=== PATIENT | male | born 1945 | race Caucasian/White ===

== ENCOUNTER 2016-08-11 09:10 | Outpatient (CLI) | payer MEDICARE, OTHER ==
[~2016-08-11] VITALS: Ht 172.7 cm; Wt 118.1 kg
--- OUTSIDE RECORDS SUMMARY | 2016-08-11 09:15 | XMS REPORT ---
Author Author Eddie Nolasco [facility] Address [address] [place] [id number] Care Team Providers Care Dairy Products Maker Name Role Phone Eddie Nolasco PCP Unavailable Allergies and Adverse Reactions Name Reaction Notes NO KNOWN DRUG ALLERGIES Plan of Treatment Planned Activity Comments Planned Date Planned Time Plan/Goal ELECTROCARDIOGRAM COMPLETE 05/14/2015 12:00 AM TTE W/DOPPLER COMPLETE 05/14/2015 12:00 AM Medications Active Name Start Date Estimated Completion Date SIG Comments lisinopril 10 mg oral tablet take 0.5 tablet by oral route daily omeprazole 20 mg oral capsule,delayed release(DR/EC) take 1 capsule (20 mg) by oral route once daily before a meal Medrol (Gibran) 4 mg oral tablets,dose pack 08/24/2014 take as directed Name Start Date Expiration Date SIG Comments Naprosyn 500 mg oral tablet 10/22/2009 04/20/2010 take 1 tablet (500 mg) by oral route every 12 hours with food for 30 days Lortab 10-500 mg oral tablet 11/11/2009 11/21/2009 take 1 tablet by oral route every 4-6 hours as needed for pain for 10 days prednisone 20 mg oral tablet 11/11/2009 12/04/2009 3 tabs q d x 3 d, then 2 q d x 5 d, then 1 1/2 q d x 5 d, 1 q d x 5 d, 1/2 q d x 5 d Biaxin 500 mg oral tablet 03/04/2014 03/18/2014 take 1 tablet (500 mg) by oral route 2 times per day for 14 days Flagyl 500 mg oral tablet 03/04/2014 03/18/2014 take 1 tablet (500 mg) by oral route 3 times per day for 14 days Levaquin 500 mg oral tablet 08/24/2014 08/31/2014 take 1 tablet (500 mg) by oral route once daily for 7 days Singulair 10 mg oral tablet 08/24/2014 09/23/2014 take 1 tablet (10 mg) by oral route once daily in the evening for 30 days Discontinued Name Start Date Discontinued Date SIG Comments atorvastatin 20 mg oral tablet 08/24/2014 take 0.5 tablet by oral route daily Problem List Description Status Onset Anemia Active Vital Signs Date Time BP-Sys(mm[Hg] BP-Elicia(mm[Hg]) HR(bpm) RR(rpm) Temp WT HT HC BMI BSA BMI Percentile O2 Sat(%) 08/24/2014 1:19:00 PM 132 mmHg 76 mmHg 98 bpm 18 rpm 98.6 F 252.5 lbs 68 in 38.39 kg/m2 2.34 m2 98 % 03/12/2014 3:05:00 PM 136 mmHg 84 mmHg 88 bpm 20 rpm 97.9 F 252 lbs 68 in 38.3161 kg/m 2.3418 m 96 % 02/19/2014 11:19:00 AM 170 mmHg 90 mmHg 90 bpm 20 rpm 97.4 F 252 lbs 68 in 38.32 kg/m2 2.34 m2 97 % 11/11/2009 9:25:00 AM 140 mmHg 90 mmHg 64 bpm 16 rpm 97.9 F 251.187 lbs 10/22/2009 3:44:00 PM 160 mmHg 88 mmHg 88 bpm 20 rpm 248 lbs Social History Name Description Comments Tobacco Former smoker retired History of Procedures Date Ordered Description Order Status 11/11/2009 12:00 AM X-RAY EXAM KNEE 4 OR MORE Reviewed 11/11/2009 12:00 AM X-RAY EXAM KNEE 4 OR MORE Reviewed Results Summary Data and Description Results 06/07/2007 12:00 AM Cholest Cry Stone Ql IR 162.0 %LDLc SerPl-mCnc 95.0 mg/ dLHDLc SerPl-mCnc 44.0 mg/dLTrigl SerPl-mCnc 117.0 mg/dLHgb A1c Fr Bld 5.40 % PSA SerPl-mCnc 0.760 ng/mL 12/09/2007 12:00 AM Glucose SerPl-mCnc 109.0 mg/dL History Of Immunizations Not available. History of Past Illness Name Date of Onset Comments Anemia Hyperlipidemia Knee pain Tendinitis Oct 22 2009 3:46PM Osteoarthritis, Knee Oct 22 2009 3:46PM Pain in joint; lower leg/knee Nov 11 2009 10:21AM Obesity Nov 11 2009 9:27AM Sprain/Strain Nov 11 2009 9:27AM Osteoarthritis, Knee Nov 11 2009 9:27AM Blood Pressure Reading Elevated Without Diagnosis Of Hypertension Nov 11 2009 9:27AM Hypertension Helicobacter Pylori (H. Pylori) Infection Colon Cancer Screening Feb 19 2014 11:25AM Rectal bleeding Feb 19 2014 11:25AM Helicobacter Pylori (H. Pylori) Infection Mar 12 2014 3:08PM Acute gastritis Mar 12 2014 3:08PM Follow-up examination after endoscopy Mar 12 2014 3:08PM Bronchitis Aug 24 2014 1:21PM Syncope May 14 2015 4:15PM SOB (shortness of breath) May 14 2015 4:15PM Payers Insurance Name Company Name Plan Name Plan Number Policy Number Policy Group Number Start Date Medicare Part B Medicare [facility] [id number] N/A Aetna Medicare Supplement Aetna Medicare Supplement [id number] N/A [facility] [id number] Saturday, 2008 [employer] Insurance [employer] Insurance [id number] N/A History of Encounters Visit Date Visit Type Provider 08/24/2014 Office visit Eddie Nolasco PA-C 03/12/2014 Office visit Roman Hampton MD 03/01/2014 [facility] Roman Hampton MD 02/19/2014 Office visit Roman Hampton MD 04/06/2010 Laboratory Santosh Burciaga MD 01/13/2010 Laboratory Joaquin Gibbs MD 11/11/2009 Office visit Tyler Perry DO 10/22/2009 Office visit Tyler Perry DO 05/29/2009 Office visit Tyler Perry DO
[2016-08-11 09:18] VITALS: BP 159/83
[2016-08-11] MEDS ORDERED: LISI-552 PO (09:31)
[2016-08-11] MEDS ORDERED: ASPI-808 PO (09:31)
[2016-08-11] MEDS ORDERED: ATOR10TA66 PO (09:31)
[2016-08-11] MEDS ORDERED: FISH1CAP15 PO (09:31)
[2016-08-11 09:55] LABS: BASOPHILS % (AUTO) 1 % (0-10); EOSINOPHILS # (AUTO) 0.1 10^3/uL (0.0-0.3); EOSINOPHILS % (AUTO) 2 % (0-10); LYMPHOCYTES % (AUTO) 31 % (12-44); MEAN CORPUSCULAR HEMOGLOBIN 29 PG (25-34); MEAN CORPUSCULAR HGB CONC 34 G/DL (32-36); MEAN CORPUSCULAR VOLUME 85 FL (80-99); MONOCYTES # (AUTO) 0.4 X 10^3 (0.0-1.0); MONOCYTES % (AUTO) 6 % (0-12); NEUTROPHILS # (AUTO) 3.8 X 10^3 (1.8-7.8); NEUTROPHILS % (AUTO) 61 % (42-75); PLATELET COUNT 326 10^3/uL (130-400); RED BLOOD COUNT 4.76 10^6/uL (4.35-5.85); RED CELL DISTRIBUTION WIDTH 13.8 % (10.0-14.5); WHITE BLOOD COUNT 6.4 10^3/uL (4.3-11.0)
== END 2016-08-11 09:40 | disposition home or self-care (01) ==
LOC: PREOP 09:10
PROVIDERS: ATTEND Surgery Pediatric Surgery
DX: Z01.812 Encounter for preprocedural laboratory examination (principal); Z11.2 Encounter for screening for other bacterial diseases; E66.01 Morbid (severe) obesity due to excess calories; Z68.39 Body mass index [BMI] 39.0-39.9, adult
CPT/HCPCS: 36415; 85025; 87081

== ENCOUNTER 2016-08-16 06:56 | Inpatient (IN) | payer MEDICARE, OTHER ==
[~2016-08-16] VITALS: Ht 172.7 cm; Wt 118.1 kg
[~2016-08-16 06:56] MED LIST: ASPI-808 PO; ATOR10TA66 PO; FISH1CAP15 PO; LISI-552 PO
[2016-08-16] MEDS ORDERED: ceFAZolin 1,000 MG (ANCEF) VIAL ONE (07:00)
[2016-08-16] MEDS ORDERED: NORMAL SALINE (BAXTER MINI) 50 ML IV ONE (07:00)
[2016-08-16] MEDS ORDERED: proPOfol 200 MG/20 ML (DIPRIVAN) VIAL IV ONE (07:09)
[2016-08-16] MEDS ORDERED: ROCURONIUM 50 MG/5 ML (ZEMURON) VIAL IV ONE ×2 (07:09→10:04)
[2016-08-16] MEDS ORDERED: DEXAMETHASONE PF 10 MG/ML (DECADRON) VIAL ONE (07:09)
[2016-08-16] MEDS ORDERED: SEVOFLURANE (ULTANE) 15 ML INHAL SOLN ONE ×4 (07:09→10:03)
[2016-08-16] MEDS ORDERED: LACTATED RINGERS 1,000 ML IV ONE ×2 (07:09→08:25)
[2016-08-16] MEDS ORDERED: MIDAZOLAM 2 MG/2 ML (VERSED) VIAL ONE (07:09)
[2016-08-16] MEDS ORDERED: fentaNYL INJECTION 250 MCG/5 ML AMP ONE (07:09)
[2016-08-16] MEDS ORDERED: LIDOCAINE PF 2% 10 ML (XYLOCAINE) AMP ONE (07:09)
[2016-08-16] MEDS ORDERED: ONDANSETRON 4 MG/2 ML (SDV) Z0FRAN ONE ×2 (07:09→07:15)
[2016-08-16] MEDS ORDERED: FAMOTIDINE 20MG/2ML IV (PEPCID) ONE (07:15)
[2016-08-16] MEDS: LACTATED RINGERS 1,000 ML IV PRN ×2 (07:15→08:30)
[2016-08-16] MEDS ORDERED: BUP/EPI 0.5% 1:200,000 (SENSORCAINE) 30 ML VIAL ONE (07:17)
[2016-08-16] MEDS ORDERED: ONDANSETRON 4 MG/2 ML (SDV) Z0FRAN IV ONE (07:30)
[2016-08-16] MEDS ORDERED: FAMOTIDINE 20MG/2ML IV (PEPCID) IV ONE (07:30)
[2016-08-16] MEDS ORDERED: CATHETER FLUSH 10 ML SYR IV PRN (07:30)
[2016-08-16] MEDS ORDERED: ceFAZolin 1 GM/NS 50 ML IVPB IV ONE ×2 (07:30)
[2016-08-16 07:50] VITALS: BP 157/83
--- NOTE | 2016-08-16 07:56 | Progress Note-Pre Operative ---
Pre-Operative Progress Note H&P Reviewed The H&P was reviewed, patient examined and no changes noted. Date H&P Reviewed: Aug 16, 2016 Time H&P Reviewed: 07:55 Pre-Operative Diagnosis: Morbid obesity, HTN MELQUIADES ALEGRIA APRN Aug 16, 2016 7:56 am
[2016-08-16] MEDS ORDERED: ESMOLOL 100 MG/10 ML (BREVIBLOC) VIAL ONE (09:13)
[2016-08-16] MEDS ORDERED: NEOSTIGMINE (BLOXIVERZ ) 1 MG/1ML 10 ML VIAL ONE (09:54)
[2016-08-16] MEDS ORDERED: GLYCOPYRROLATE 0.2 MG/ML (ROBINUL) 2 ML VIAL ONE (09:54)
[2016-08-16] MEDS ORDERED: fentaNYL INJECTION 100 MCG/2 ML AMP ONE (09:58)
--- NOTE | 2016-08-16 10:12 | Progress Note-Post Operative ---
Post-Operative Progess Note Preparator Hoang Hurt WARP CLAMPER Pre-Operative Diagnosis Morbid obesity, HTN Post-Operative Diagnosis same Post-Op Procedure Note Date of Procedure: Aug 16, 2016 Name of Procedure: laparoscopic gastric sleeve resection Anesthesia Type GET Estimated blood loss (mL): minimal Specimen(s) collected stomach TRISTON DALE MD Aug 16, 2016 10:12 am
[2016-08-16] MEDS ORDERED: fentaNYL INJECTION 5,000 MCG in NS (IVPB) 0 ML IV SCH (10:15)
[2016-08-16] MEDS ORDERED: oxyCODONE 20 MG/1 ML ORAL CONC (RoxiCODONE) CHARGE PER 1 ML PO PRN (10:15)
[2016-08-16] MEDS ORDERED: diphenhydrAMINE 50 MG/ML INJ (BENADRYL) IVP PRN (10:15)
[2016-08-16] MEDS ORDERED: HYDROmorphone (DILAUDID) 2 MG/ML VIAL ONE (10:19)
[2016-08-16] MEDS ORDERED: morphine INJ 10 MG/ML 1ML (SYR OR VIAL) ONE (10:19)
[2016-08-16] MEDS: morphine INJ 10 MG/ML 1ML (SYR OR VIAL) IVP PRN ×2 (10:28→10:35)
[2016-08-16] MEDS ORDERED: ONDN4T PO (10:29)
[2016-08-16] MEDS ORDERED: OXYC-473 PO (10:29)
[2016-08-16] MEDS ORDERED: PANT40TA2 PO (10:29)
[2016-08-16] MEDS ORDERED: HYDROmorphone (DILAUDID) 2 MG/ML VIAL IVP PRN (10:30)
[2016-08-16] MEDS ORDERED: ONDANSETRON 4 MG/2 ML (SDV) Z0FRAN IVP PRN (10:30)
[2016-08-16] MEDS ORDERED: MEPERIDINE (DEMEROL) INJ 50 MG/ML IVP PRN (10:30)
--- NOTE | 2016-08-16 10:34 | Discharge Inst-Surgical ---
D/C Lap Instructions-SUYAPA New, Converted, or Re-Newed RX: RX on Chart Follow Up Appt in 2 weeks Activity as tolerated No driving for 24 hours No driving while on pain medications Incentive Spirometry use every 2 hours while awake Phase 1 clear liquid diet. Symptoms to Report: Fever over 101 degree F, Nausea/Vomiting Infection Signs and Symptoms to report: Increased redness, Foul odor of wound, Increased drainage Bathing instructions: May shower Operative Area Clean/Dry; Keep incision clean/dry If any problems/questions: Contact your physician or go to Emergency Room TRISTON DALE MD Aug 16, 2016 10:33 am
[2016-08-16] MEDS: 1/2 NS W/KCL 20 MEQ/L 1,000 ML IV SCH ×3 (11:43→22:10)
[2016-08-16 11:45] VITALS: BP 153/83
[2016-08-16] MEDS: metroNIDAZOLE 500MG/100ML IVPB 100 ML IV SCH ×2 (11:49→18:18)
[2016-08-16] MEDS: fentaNYL PCA 300 MCG/30 ML VIAL IV PRN (11:58)
--- NOTE | 2016-08-16 13:20 | OPERATIVE REPORT ---
PROCEDURE PHYSICIAN: TRISTON NAVA DATE OF PROCEDURE: 08/16/2016 ATTENDING PHYSICIAN: Dr. Perry PREOPERATIVE DIAGNOSIS: 1. Morbid obesity. 2. Hypertension. 3. Degenerative joint disease. POSTOPERATIVE DIAGNOSIS: 1. Morbid obesity. 2. Hypertension. 3. Degenerative joint disease. PROCEDURE: Laparoscopic gastric sleeve resection. SURGEON: Dr. Nava. HOSPICE SPIRITUAL CARE COORDINATOR: Hoang Hurt APRN. ANESTHESIA: General endotracheal. ESTIMATED BLOOD LOSS: Minimal. FINDINGS: Mild hepatomegaly. DISPOSITION: The patient tolerated the procedure well. Mr. Marques Ram is a 71-year-old male who is in our surgical weight loss program for the laparoscopic gastric sleeve resection and meets the medical criteria for bariatric surgery. He reports gaining the majority of his weight 25 years ago after he quit smoking. He has tried a number of exercise and diet attempts with no success. He has tried diet programs including Atkins, and high protein, low carb diets, with no success. He has tried exercise regimens including walking, stationary bike and treadmill, again with no success. His medical comorbidities related to obesity include hypertension, degenerative joint disease. PROCEDURE: The patient was brought to the operating room and laid supine on the table. After adequate IV pain and sedative medications and general endotracheal intubation the abdomen was prepped and draped in the standard surgical fashion. 0.5% Marcaine with epinephrine was then used to anesthetize the overlying skin in the left upper abdominal quadrant. A small transverse incision made using a 15 blade. The Veress needle was removed and a 5 mm Xcel trocar placed followed by a 5 mm, 45 degrees angle laparoscope, visualizing the peritoneal cavity. A four-quadrant abdominal exploration was performed. There was mild hepatomegaly. The gallbladder was visualized and appeared normal. No hiatal hernia was identified. Under direct visualization, we then to place a mid abdominal, left of midline 10 mm port after the skin and peritoneum were anesthetized using 0.5% Marcaine with epinephrine. In a similar manner, a mid abdominal, right of midline 15 mm port was placed, followed by a 5 mm abdominal quadrant port. An area in the epigastric region was then anesthetized using 0.5% Marcaine with epinephrine and a small transverse skin incision made using an 11 blade. A tract was then created through the abdominal wall layers using the trocar to a 5 mm port. Through this opening a medium size Wendy liver retractor was placed and the left lobe of the liver retracted anteriorly and superiorly. The patient was then placed in deep reverse Trendelenburg position. The distance was measured from the pylorus along the greater curvature, approximately 6 cm and marked with a marking pen. The gastrocolic ligament near the stomach was then opened using Sonicision. The lesser sac was entered. We then proceeded with inferior dissection until we were approximately 2 cm below our marking. We then proceeded proximately taking down the short gastric vessels, using the Sonicision. The entire angle of His was then dissected out, as well as the posterior stomach with visualization of good hemostasis. We then proceeded with our gastric sleeve resection using a OCHOA 45 mm polyglycolic acid black load stapler at approximately 2 cm below our marking. Before this, the lighted GastroSail was placed under direct visualization and used this as a bougie. We then proceeded to follow along the lighted bougie using two 60 mm black load followed by 60 mm purple load with visualization of good hemostasis. The staple line edges were then clipped with 5 mm clips. The pylorus was then occluded and approximally 75 mL of air were infused through the GastriSail with no leak identified. The saline that was irrigated was then suctioned out. Tisseel fibrin glue was then placed on the staple line and the omenta placed onto the staple line. The stomach remnant was removed through the 15 mm port site. The liver retractor was then removed. The fascia and peritoneum to the 10 and 15 mm port sites were then closed under direct visualization using a Bryan-Isidro device and 0 Vicryl suture. The abdomen was desufflated. The remaining ports removed and all skin incisions were closed using 4-0 Monocryl running subcuticular sutures. Wounds were then cleaned and covered Dermabond. The patient tolerated procedure well. We will admit him to the general surgical floor. We will start IV and oral pain medication. We will also proceed with DVT prophylaxis with early ambulation, calf SCDs, as well as Lovenox injections. Tomorrow we will start a phase I clear liquid diet. Once he is tolerating clears, has good pain control with oral pain medication and is ambulating well, we will discharge him home. Job ID: [id number] Dictated Date: 08/16/2016 10:50:31 Diplomatic Officer Date: 08/16/2016 13:03:22 / tri PRESCOTT
[2016-08-16] MEDS: meTOprolol 5 MG/5 ML (LOPRESSOR) VIAL IVP SCH ×3 (13:25→21:14)
[2016-08-16] MEDS: ONDANSETRON 4 MG/2 ML (SDV) Z0FRAN IVP SCH ×2 (13:25→18:18)
[2016-08-16] MEDS: ceFAZolin INJECTION 2,000 MG in NS (IVPB) 50 ML IV SCH ×2 (14:30→22:10)
[2016-08-16] MEDS: RT-ALBUTEROL SULF 2.5 MG/3 ML PRE-MIX VIAL INH SCH ×4 (15:48→22:28)
[2016-08-16 16:22] VITALS: BP 160/72
[2016-08-16 20:00] VITALS: BP 159/86
[2016-08-16] MEDS: ENOXAPARIN 40 MG/0.4 ML (LOVENOX) SYR SC SCH (21:15)
[2016-08-16] MEDS: PANTOPRAZOLE 40 MG/10 ML (PROTONIX) VIAL IV SCH (21:15)
[2016-08-17 00:15] VITALS: BP 150/77
[2016-08-17] MEDS: meTOprolol 5 MG/5 ML (LOPRESSOR) VIAL IVP SCH ×4 (00:28→11:57)
[2016-08-17] MEDS: ONDANSETRON 4 MG/2 ML (SDV) Z0FRAN IVP SCH ×2 (00:28→06:42)
[2016-08-17] MEDS: metroNIDAZOLE 500MG/100ML IVPB 100 ML IV SCH (01:18)
[2016-08-17] MEDS: RT-ALBUTEROL SULF 2.5 MG/3 ML PRE-MIX VIAL INH SCH ×4 (02:25→13:42)
[2016-08-17 04:41] VITALS: BP 149/75
[2016-08-17] MEDS: fentaNYL PCA 300 MCG/30 ML VIAL IV PRN (04:41)
[2016-08-17 05:06] LABS: MEAN PLATELET VOLUME 10.5 FL (7.4-10.4); RED BLOOD COUNT 4.34 10^6/uL (4.35-5.85); RED CELL DISTRIBUTION WIDTH 13.8 % (10.0-14.5); WHITE BLOOD COUNT 11.6 10^3/uL (4.3-11.0)
[2016-08-17 05:26] LABS: ANION GAP 12 MMOL/L (5-14); BLOOD UREA NITROGEN 13 MG/DL (7-18); BUN/CREATININE RATIO 12; CALCIUM 8.8 MG/DL (8.5-10.1); CARBON DIOXIDE 18 MMOL/L (21-32); CHLORIDE 108 MMOL/L (98-107); CREATININE SERUM 1.07 MG/DL (0.60-1.30); GFR ESTIMATED > 60; GLUCOSE 112 MG/DL (70-105); POTASSIUM 3.9 MMOL/L (3.6-5.0); SODIUM 138 MMOL/L (135-145)
[2016-08-17] MEDS: ceFAZolin INJECTION 2,000 MG in NS (IVPB) 50 ML IV SCH (06:41)
[2016-08-17] MEDS: 1/2 NS W/KCL 20 MEQ/L 1,000 ML IV SCH (06:42)
[2016-08-17 08:00] VITALS: BP 153/73
[2016-08-17] MEDS: PANTOPRAZOLE 40 MG/10 ML (PROTONIX) VIAL IV SCH (08:28)
[2016-08-17] MEDS: ENOXAPARIN 40 MG/0.4 ML (LOVENOX) SYR SC SCH (08:28)
--- NOTE | 2016-08-17 10:01 | Anesthesia-General Post-Op ---
General Patient Condition Mental Status/LOC: Same as Preop Cardiovascular: Satisfactory Nausea/Vomiting: Absent Respiratory: Satisfactory Pain: Controlled Complications: Absent Post Op Complications Complications None Follow Up Care/Instructions Patient Instructions None needed. Anesthesia/Patient Condition Patient Condition Patient is doing well, no complaints, stable vital signs, no apparent adverse anesthesia problems. No complications reported per nursing. D/C home per [facility] Criteria: No DEMI FABIAN CRNA Aug 17, 2016 10:01
[2016-08-17] MEDS ORDERED: METOCLOPRAMIDE INJ 10 MG/2 ML (REGLAN) IVP PRN (10:15)
[2016-08-17] MEDS ORDERED: ONDANSETRON 4 MG/2 ML (SDV) Z0FRAN IVP PRN (10:15)
--- NOTE | 2016-08-17 11:32 | Progress Note (SOAP) ---
Subjective Subjective/Events-last exam doing well. tolerating phase 1 clear liquid diet. pain controlled. Objective Exam Vital Signs Date Time Temp Pulse Resp B/P Pulse Ox O2 Delivery O2 Flow Rate FiO2 08/17/16 10:45 95 08/17/16 09:00 95 Room Air 08/17/16 08:00 97.8 93 18 153/73 93 Nasal Cannula 08/17/16 07:00 88 08/17/16 06:57 94 1.00 08/17/16 06:50 18 08/17/16 04:41 18 08/17/16 04:41 18 08/17/16 04:41 97.7 99 18 149/75 98 Nasal Cannula 08/17/16 02:26 95 1.00 08/17/16 01:00 99 08/17/16 00:15 97.7 100 20 150/77 97 Nasal Cannula 1.00 08/16/16 22:28 94 2.00 08/16/16 21:00 Nasal Cannula 2.00 08/16/16 20:00 97.6 86 18 159/86 98 Room Air 08/16/16 19:07 94 2.00 08/16/16 19:00 82 08/16/16 16:22 97.2 92 18 160/72 98 Room Air 08/16/16 15:58 92 2.00 08/16/16 14:18 16 08/16/16 14:13 95 Nasal Cannula 2.00 08/16/16 13:13 99 08/16/16 11:45 96.5 104 20 153/83 96 Room Air I & O 08/17/16 07:00 Intake Total 3410 ml Output Total 500 ml Balance 2910 ml Capillary Refill : Less Than 3 Seconds General Appearance: No Apparent Distress HEENT: PERRL/EOMI Neck: Full Range of Motion Respiratory: Chest Non Tender Lungs Clear Normal Breath Sounds Cardiovascular: Regular Rate, Rhythm Gastrointestinal: soft other (incision clean/dry) Extremity: Normal Capillary Refill Neurologic/Psychiatric: Alert Oriented x3 Skin: Normal Color Lymphatic: No Adenopathy Results Lab Laboratory Tests 08/17/16 04:35: Anion Gap 12, BUN/Creatinine Ratio 12, Blood Urea Nitrogen 13, Calcium Level 8.8 , Carbon Dioxide Level 18L, Chloride Level 108H, Creatinine 1.07, Estimat Glomerular Filtration Rate > 60, Glucose Level 112H, Hematocrit 37L, Hemoglobin 12.7L, Mean Corpuscular Hemoglobin 29, Mean Corpuscular Hemoglobin Concent 35, Mean Corpuscular Volume 85, Mean Platelet Volume 10.5H, Platelet Count 291, Potassium Level 3.9, Red Blood Count 4.34L, Red Cell Distribution Width 13.8, Sodium Level 138, White Blood Count 11.6H Assessment/Plan Assessment/Plan Assess & Plan/Chief Complaint s/p laparoscopic gastric sleeve resection. increase ambulation. increase PO liquid intake. home when criteria met. Diagnosis/Problems: Clinical Quality Measures DVT/VTE Risk/Contraindication: Risk Factor Score Per Nursin RFS Level Per Nursing on Admit: 4+=Very High TRISTON DALE MD Aug 17, 2016 11:32
[2016-08-17 12:00] VITALS: BP 162/75
[2016-08-17 18:31] VITALS: BP 162/75
--- NOTE | 2016-08-19 13:23 | Physician Query-Final Dx ---
TATUM CLIFTON 08/19/16 1323: Final Diagnosis Give Final Diagnosis Please give Final Diagnosis TRISTON DALE MD 08/19/16 1540: Final Diagnosis Give Final Diagnosis morbid obesity, hypertension, degenerative joint disease. TATUM CLIFTON Aug 19, 2016 13:23 TRISTON DALE MD Aug 19, 2016 15:40
== END 2016-08-17 16:20 | disposition home or self-care (01) | DRG 621 ==
LOC: SURGICAL 06:56 → SURG 06:57 → 4TH 11:34
PROVIDERS: ADMIT Surgery Pediatric Surgery; ATTEND Surgery Pediatric Surgery
PROC: 0DB64Z3 Excision of Stomach, Percutaneous Endoscopic Approach, Vertical (ICD-10-PCS; principal; 2016-08-16 08:00)
DX: E66.01 Morbid (severe) obesity due to excess calories (principal); Z68.39 Body mass index [BMI] 39.0-39.9, adult; I10 Essential (primary) hypertension; E78.5 Hyperlipidemia, unspecified; M19.91 Primary osteoarthritis, unspecified site; Z87.891 Personal history of nicotine dependence; Z96.652 Presence of left artificial knee joint
CPT/HCPCS: 36415; 80048; 85027; 94640; 94664; 94760